=== PATIENT | female | born 1955 | race Caucasian/White ===

== ENCOUNTER 2018-01-24 13:24 | Emergency (ER) | payer BC ==
[2018-01-24 13:32] VITALS: BP 135/91
--- NOTE | 2018-01-24 14:00 | UC ---
Upper Extremity HPI - HPI Summary HPI Summary: Sofi Davey, scribed for attending Swetha Aburto MD. Pt is a 62 y/o F who presents to [facility] c/o L thumb pain and swelling s/p injury. Last night at about 1800 the pt was on a boat, sitting down with her feet underneath the chair. Her feet had unknowingly become tucked underneath a carpet that was not secured. When she went to stand up, she tried stepping but could not move her feet and fell forward, injured the L thumb. Negative head trauma and LOC. On triage, pain is mild ranked 2/10 and she has not taken any medication for pain. Slept in a wrist brace last night from prior wrist injury. Notes mild L wrist "soreness" and an abrasion on the L knee. Negative tingling/ numbness in the feet. Denies any other injuries. Tetanus is not UTD, needs to be updated. Right hand dominant. Patient with previous surgery to her right wrist for ganglion cyst and a fracture approximately 6 years ago. Patient medications and allergies reviewed this visit. - History of Current Complaint Chief Complaint: UCUpperExtremity Stated Complaint: THUMB INJURY Time Seen by Provider: 01/24/18 13:57 Hx Obtained From: Patient Onset/Duration: Lasting Hours - Last night at 1800, Still Present Severity Currently: Mild Pain Intensity: 2 Pain Scale Used: 0-10 Numeric Location Of Pain: Is Discrete @ - L thumb Aggravating Factor(s): Nothing Alleviating Factor(s): Nothing Associated Signs And Symptoms: Positive: Swelling Related History: Dominant Hand Right - Allergies/Home Medications Allergies/Adverse Reactions: Allergies Allergy/AdvReac Type Severity Reaction Status Date / Time No Known Allergies Allergy Verified 01/24/18 13:33 PMH/Surg Hx/FS Hx/Imm Hx - Additional Past Medical History Additional PMH: NEGATIVE: DM Cardiovascular History: Hypertension - Surgical History Surgical History: Yes Surgery Procedure, Year, and Place: Gallbladder - Family History Known Family History: Positive: Cardiac Disease - Social History Lives: With Family Alcohol Use: Occasionally Substance Use Type: None Smoking Status (MU): Former Smoker Review of Systems Constitutional: Negative Skin: Other - L thumb swelling, L knee abrasion Eyes: Negative ENT: Negative Respiratory: Negative Cardiovascular: Negative Gastrointestinal: Negative Genitourinary: Negative Motor: Negative Neurovascular: Negative Musculoskeletal: Other: - L thumb pain, L wrist "soreness" Neurological: Negative Psychological: Negative All Other Systems Reviewed And Are Negative: Yes - Comments Additional Review of Systems Comments: NEGATIVE: Tingling/numbness, LOC Physical Exam - Summary Physical Exam Summary: Vital Signs Reviewed: Yes A+Ox3, no distress Eyes: Conjunctiva Clear ENT: Hearing grossly normal neck: supple Respiratory: Positive: No respiratory distress, No accessory muscle use Cardiovascular: skin color reflect adequate perfusion 2+ raial, 2+ ulnar CBT < 2 sec Musculoskeletal Exam: Pt with edema and tenderness along MCP to distal phalynx lefft thumb + diffuse edema and ecchymosis + flex/ext IP: limited second to edema + abduction, adduction + flex/ext MCP + point tenderness over MCP medial > latera; No snuffbox pain Neurological: Positive: Alert, ambulatory without difficulty + gross sensation throughout Psychological: Positive: Normal Response To Family Skin: Positive: no rash, diffuse ecchymosis and edema of left thumb Triage Information Reviewed: Yes Vital Signs: Initial Vital Signs Temp 97.5 F 01/24/18 13:30 Pulse 79 01/24/18 13:30 Resp 18 01/24/18 13:30 BP 135/91 01/24/18 13:30 Pulse Ox 99 01/24/18 13:30 Diagnostics - Radiology Thumb XR Xray Interpretation: Positive (See Comments) - 1. FRACTURE OF THE BASE OF THE PROXIMAL PHALANX OF THE FIRST DIGIT WITH ARTICULAR EXTENSION. 2. OSTEOARTHRITIS. 3. OSTEOPENIA Physician reviewed this report. Radiology Interpretation Completed By: Radiologist Upper Extremity Course/Dx - Course Course Of Treatment: Patient medications and allergies reviewed this visit. Patient presents with left thumb edema and swelling status post falling last evening. Patient with tenderness at the MCP joint medial more than lateral. Patient does have range of motion. X-ray shows fracture. Patient placed in thumb spica. Patient given contact information for Dr. Prasad who previously did surgery. Patient requested a [facility] as well. Patient was given Dr. Montana's contact info. Patient's which her primary care office regarding her tetanus. It was determined that his tetanus is out-of-date and needs to be updated. Patient declined to have tetanus here states she'll get at her primary for 3 days. Encourage patient take Motrin Tylenol. Return precautions discussed. Patient comfortable in agreement with plan. - Differential Dx/Diagnosis Provider Diagnoses: thumb fracture Discharge - Sign-Out/Discharge Documenting (check all that apply): Patient Departure - Discharge - Discharge Plan Condition: Stable Disposition: HOME Patient Education Materials: Thumb Fracture (ED) Referrals: Brody Montana MD [Medical Doctor] - (Call today for follow-up appointment. ) Camille Mix MD [Primary Care Provider] - Mar Prasad MD [Medical Doctor] - (Call today for follow-up appointment. ) Additional Instructions: - wear splint until you are seen in follow-up by the orthopedic provider -apply ice (20 min at a time) every 2-3 hours for the next 2 days --Okay to alternate ibuprofen (Advil, Motrin) and Tylenol product (Tylenol) every 3 hours for pain. Take with food. Do NOT take for more than 4-5 days. -Contact the orthopedic provider to schedule a follow-up appointment. . Contact your doctor or return with questions or concerns - Billing Disposition and Condition Condition: STABLE Disposition: Home
--- NOTE | 2018-01-24 14:17 | RAD ---
HISTORY: fell last night, left hand pain COMPARISONS: Left wrist dated January 16, 2012 VIEWS: 3, Frontal, lateral, and oblique views of the left first digit FINDINGS: BONE DENSITY: There is diffuse osteopenia. BONES: There is a defect of the ulnar aspect of the base of the proximal phalanx of the first digit, with adjacent bone fragment, suggestive of displaced fracture. JOINTS: There is advanced osteoarthritis of the first CMC joint, and to a lesser extent of the first MCP and STT joints. ALIGNMENT: There is no dislocation. SOFT TISSUES: Unremarkable. OTHER FINDINGS: None. IMPRESSION: 1. FRACTURE OF THE BASE OF THE PROXIMAL PHALANX OF THE FIRST DIGIT WITH ARTICULAR EXTENSION. 2. OSTEOARTHRITIS. 3. OSTEOPENIA
[2018-01-24] MEDS ORDERED: Acetaminophen TAB* 325 MG PO ONE (14:24)
== END 2018-01-24 14:47 | disposition home or self-care (01) ==
LOC: UCEAST 13:24
DX: S62.502A Fracture of unspecified phalanx of left thumb, initial encounter for closed fracture (principal); I10 Essential (primary) hypertension; Y92.814 Boat as the place of occurrence of the external cause; W19.XXXA Unspecified fall, initial encounter; Z87.891 Personal history of nicotine dependence
CPT/HCPCS: 99212; A9270-GY; G0463

== ENCOUNTER 2019-02-03 19:49 | Emergency (ER) | payer BC ==
--- OUTSIDE RECORDS SUMMARY | 2019-02-03 19:54 | XMS REPORT | Continuity of Care Document ---
:1955 External Reference #:[id number] Author Name Hamilton Priscilla Care Team Providers Name Role Phone Camille Mix MD Primary Care Physician Unavailable Payers Date Identification Numbers Payment Provider Subscriber PayID: [id number] [facility] Jose Stewart [address] [place] [address] Family History Date Family Member(s) Observation Comments Father due to Heart Disease () - at age 64 Mother due to Cancer () - age 79 Mother Hypertension Mother Thyroid Disease Mother Depression Mother Psychiatric disorder Mother Dementia Maternal Grandfather due to Heart Disease () - age 67 Maternal Grandmother psychiatric disorder Maternal Grandmother due to Stroke () - age 79 Maternal Grandmother Dementia Social History Type Date Description Comments Sex Unknown Lives With Spouse Lives With Son Tobacco Use Start: Unknown End: Former Cigarette Smoker Unknown 1/2 Pack Daily Cigarette Use Pack Years - 41 ETOH Use Currently consumes 1-3 per week alcohol Recreational Drug Use Former Drug User Tobacco Use Start: Unknown End: Patient is a former Unknown smoker Smoking Status Reviewed: 01/30/19 Patient is a former smoker Exercise Type/Frequency Does not exercise Allergies, Adverse Reactions, Alerts Active Allergies Reaction Severity Comments Date Metoprolol 01/24/2019 Medications Active Medications SIG Qnty Indications Ordering Provider Date Alprazolam 1/2 as needed Unknown 0.25mg Tablets Aspirin-Acetaminophen- as needed Unknown Caffeine [phone] Tablets Calcium- Magnesium- 1000mg calcium, Unknown Vitamin D 800mg Vitamin D, [id number] 500mg Magnesium Levothyroxine Sodium 1 by mouth every Unknown day 50mcg Tablets Preservision Areds 2 Unknown Areds 2 Capsules Vitamin E 100 Units 180mg daily Unknown Capsule Vitamin C ER 1 by mouth every Unknown 500mg day Capsules ER Vital Signs Date Vital Result Comment 01/30/2019 1:13pm Height 64 inches 5'4" Weight 182.00 lb Heart Rate 73 /min BP Systolic 137 mmHg BP Diastolic 90 mmHg O2 % BldC Oximetry 96 % BMI (Body Mass Index) 31.2 kg/m2 Plan of Treatment Future Appointment(s):03/13/2019 2:00 pm - [facility] [place] [facility]01/30/2019 - Charlette Ortez, PAE03.9 Hypothyroidism, unspecifiedFollow up:see me in 6-8 weeksRecommendations:we will recheck the labs and make a decision about the medication.F43.20 Adjustment disorder, unspecifiedRecommendations:Please begin to look at Lyndsey Roy's work--podcasts on adrenals and hormones. She also has a book Adrenal Thyroid revolution. You are going to learn about your stress AXIS and what soothes it and protects you. Try to introduce a stress reduction practice, even 15 minutes where you put your legs up the wall (yoga pose) or put an sherrill on your phone called Stress Free by the [facility]. Guidedmeditations. exercise/ walking / restorative yoga Start to wean off of anything with white flour For now no pasta, breads, crackers. If you snack, put the dip or cheese with veggies. It is true that going grain free is helpful for stabilizing sugar but I think you need some quinoa a few times a week. . keep veggies up! When you have a birthday or Mother's Day--ask for massage, 3-4 hours of alonetime, etc. Self Care. Alcohol is not your friend if it goes over a serving 3-4 times a week. Sorry! It relaxes you but has a cost to health. consider tinctures of passionflower or Skullcap for anxiety/relaxation. Drink Kalin tea during the day (Holy Basil) It is good for the adrenals. Add Ashwaganda 400mg daily ( I will send you an invitation to [facility] or you can get locally [employer].) look on line at [facility] tincture called Bonnie. see if you can order this.N95.9 Unspecified menopausal and perimenopausal disorderRecommendations:we are going to help your menopause too even though you are not having dramatic symptoms and have been in menopause for years. we will use some supports.R63.5 Abnormal weight gainRecommendations: weight loss will be the result of balancing all of your systems. we may use a particular plan in a few months. it should mimic PALEO for now
[2019-02-03 20:09] VITALS: BP 157/93
--- NOTE | 2019-02-03 20:10 | UC ---
Skin Complaint HPI - HPI Summary HPI Summary: Patient presents to urgent care for evaluation of a wound on her left great toe. Patient states last evening she was walking to her car with him. Patient states she got struck a stick on her foot and caused a small abrasion to the dorsum of her left great toe. Patient states she washed it that she feels the park when she got home clean with peroxide. Patient also felt soaks. Patient states she had increased discomfort at this time. Throughout the day today patient had progressive erythema on the top of the foot extending from the toe. Patient denies fevers or chills. Patient states she felt little bit discomfort with walking. Patient has not taken any analgesia. Patient states her tetanus is less than 1-year-old. Patient spoke to her PCP is recommended her to get medical care. Patient is not immunocompromised. - History of Current Complaint Chief Complaint: UCSkin Time Seen by Provider: 02/03/19 19:57 Stated Complaint: SORE ON TOE Hx Obtained From: Patient ?: No Onset/Duration: Gradual Onset Skin Exposure Onset/Duration: Hours Ago Timing: Constant Onset Severity: Mild Pain Intensity: 1 - Allergy/Home Medications Allergies/Adverse Reactions: Allergies Allergy/AdvReac Type Severity Reaction Status Date / Time No Known Allergies Allergy Verified 02/03/19 20:09 Home Medications: Home Medications Areds 2 1 dose PO DAILY 02/03/19 [History Confirmed 02/03/19] Ashweghanda 1 tab PO DAILY 02/03/19 [History Confirmed 02/03/19] Calcium Carb/Mag/Vitamin D3 [Coral Calcium 1,500 mg Cap] 1 tab PO DAILY [History Confirmed 02/03/19] Passion Flower Tincture 1 dose PO DAILY 02/03/19 [History Confirmed 02/03/19] PMH/Surg Hx/FS Hx/Imm Hx Previously Healthy: Yes Endocrine History: Thyroid Disease - Surgical History Surgical History: Yes Surgery Procedure, Year, and Place: Gallbladder. [employer] sugeries when younger - Family History Known Family History: Positive: Cardiac Disease, Non-Contributory - Social History Occupation: Employed Full-time Lives: With Family Alcohol Use: Occasionally Substance Use Type: None Substance Use Comment - Amount & Last Used: "not lately" Smoking Status (MU): Former Smoker Review of Systems All Other Systems Reviewed And Are Negative: Yes Constitutional: Positive: Negative Skin: Positive: Other - erythema left great toe Musculoskeletal: Positive: Negative Neurological: Positive: Negative Psychological: Positive: Negative Is Patient Immunocompromised?: No Physical Exam - Summary Physical Exam Summary: Vital Signs Reviewed: Yes A+Ox3, no distress Eyes: Conjunctiva Clear ENT: Hearing grossly normal neck: supple Respiratory: Positive: No respiratory distress, No accessory muscle use Cardiovascular: skin color reflect adequate perfusion 2+ DP, PT CBT < 2 sec Musculoskeletal Exam: DALEY x 4 without difficulty + flex/ext ankle, great toe - increased discomfort along dorsum of left foot Neurological: Positive: Alert, ambulatory without difficulty Psychological: Positive: Normal Response To proivder Skin: Positive: no rash, no ecchymosis, 2mm abraison dorsum left foot over PIP + erythema extends to dorsum just prox MCP no fluctuance, not circumferential Triage Information Reviewed: Yes Vital Signs: Initial Vital Signs Temp 97.2 F 02/03/19 19:59 Pulse 80 02/03/19 19:59 Resp 18 02/03/19 19:59 BP 157/93 02/03/19 19:59 Pulse Ox 96 02/03/19 19:59 Course/Dx - Course Course Of Treatment: Patient presents to urgent care for evaluation with erythema dorsum of the left foot. Patient states she cut with a tweak yesterday and apart. Patient states he developed erythema. No drainage. Mild pain with walking. No fevers or chills. Not Bracken compromise. Tetanus up-to-date. On exam vital signs are stable. Patient does have a wound with. Discharge. Patient with an area of erythema concerning for sialitis extending to the proximal MCP. Recommend Epsom salts. Local wound care, doxycycline Motrin Tylenol elevate was strict return precautions. Patient stated understanding agreement with plan. - Diagnoses Provider Diagnosis: Wound infection Discharge - Sign-Out/Discharge Documenting (check all that apply): Patient Departure All imaging exams completed and their final reports reviewed: No Studies - Discharge Plan Condition: Stable Disposition: HOME Prescriptions: DOXYcycline CAP(*) [DOXYcycline 100MG CAP(*)] 100 mg PO BID #14 cap Patient Education Materials: Wound Infection (ED) Referrals: Camille Mix MD [Primary Care Provider] - Additional Instructions: - take antibiotics as prescribed until gone - soak your foot in warm epsom salt baths 2 times a day for 5 days - elevate your leg - alternate ibuprofen (Motrin/Advil) and tylenol every 3hours for pain. Take with food - cover your wound with thin layer of antibiotic ointment and bandage 2 times a day - if you have increased reddness, pain, fever or other concerns it is recommended you go to the emergency department for further evaluation - Billing Disposition and Condition Condition: STABLE Disposition: Home
== END 2019-02-03 20:40 | disposition home or self-care (01) ==
LOC: UCEAST 19:49
DX: S90.412A Abrasion, left great toe, initial encounter (principal); L08.9 Local infection of the skin and subcutaneous tissue, unspecified; W22.8XXA Striking against or struck by other objects, initial encounter; Y92.9 Unspecified place or not applicable; E07.9 Disorder of thyroid, unspecified; Z87.891 Personal history of nicotine dependence
CPT/HCPCS: 87070; 87205; 99212; G0463